=== PATIENT | female | born 1980 | race Caucasian/White ===

== ENCOUNTER 2021-08-19 10:22 | Emergency (ER) | payer SELFPAY ==
[2021-08-19 11:45] LABS: SARS-COV-2 RT PCR NEGATIVE (NEGATIVE)
--- NOTE | 2021-08-19 12:11 | EDPHYS ---
Physician Documentation [facility] Name: Christa Mcdowell Age: 40 yrs Sex: Female : 1980 Arrival Date: 08/19/2021 Time: 10:23 Bed Waiting Private MD: ED Physician Allen Corona HPI: 08/19 12:10 This 40 yrs old Female presents to ER via Ambulatory with complaints of bodyaches, kb chills. 12:10 The patient or guardian reports cough, that is intermittent, described as mild, flu kb symptoms, myalgias. Onset: The symptoms/episode began/occurred this morning. Severity of symptoms: At their worst the symptoms were moderate, in the emergency department the symptoms are unchanged. Modifying factors: The symptoms are alleviated by nothing, the symptoms are aggravated by nothing. Associated signs and symptoms: The patient has no apparent associated signs or symptoms. The patient has not experienced similar symptoms in the past. The patient has not recently seen a physician. 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 - Social history:: Smoking status: Patient denies any tobacco usage or history of. ROS: 12:09 Cardiovascular: Negative for chest pain, palpitations, and edema. kb 12:09 Constitutional: Positive for body aches, chills, malaise. 12:09 Respiratory: Positive for cough. 12:09 All other systems are negative. Exam: 12:09 Constitutional: This is a well developed, well nourished patient who is awake, alert, kb and in no acute distress. Head/Face: Normocephalic, atraumatic. ENT: Moist Mucous membranes Cardiovascular: Regular rate and rhythm with a normal S1 and S2. No gallops, murmurs, or rubs. No pulse deficits. Respiratory: Respirations even and unlabored. No increased work of breathing. Talking in full sentences Skin: Warm, dry with normal turgor. Normal color. MS/ Extremity: Pulses equal, no cyanosis. Neurovascular intact. Full, normal range of motion. Neuro: Awake and alert, GCS 15, oriented to person, place, time, and situation. Moves all extremities. Normal gait. Psych: Awake, alert, with orientation to person, place and time. Behavior, mood, and affect are within normal limits. Vital Signs: 10:28 BP 126 / 73; Pulse 95; Resp 18; Temp 98.6; Pulse Ox 100% ; Weight 63.5 kg; Height 5 ft. ww 8 in. (172.72 cm); Pain 0/10; 10:28 Body Mass Index 21.29 (63.50 kg, 172.72 cm) ww MDM: 10:27 Patient medically screened. kb 12:09 Data reviewed: vital signs, nurses notes. Data interpreted: Pulse oximetry: on room air kb is 100 %. Interpretation: normal. Counseling: I had a detailed discussion with the patient and/or guardian regarding: the historical points, exam findings, and any diagnostic results supporting the discharge/admit diagnosis, lab results, the need for outpatient follow up, a family practitioner, to return to the emergency department if symptoms worsen or persist or if there are any questions or concerns that arise at home. 08/19 10:27 Order name: COVID-19/FLU A+B (Document "Date of Onset" if Symptomatic); Complete Time: kb 12:08 Administered Medications: No medications were administered Disposition: 16:37 Co-signature as Attending Physician, Allen Corona MD I agree with the assessment and kdr plan of care. Disposition Summary: 08/19/21 12:11 Discharge Ordered Location: Home kb Condition: Stable kb Diagnosis - Influenza due to identified novel influenza A virus kb Followup: kb - With: Emergency Department - When: As needed - Reason: Worsening of condition Followup: kb - With: Private Physician - When: 2 - 3 days - Reason: Recheck today's complaints, Continuance of care, Re-evaluation by your physician Discharge Instructions: - Discharge Summary Sheet kb - Influenza, Adult, [id number] kb Forms: - Medication Reconciliation Form kb - Thank You Letter kb - Antibiotic Education kb - Prescription Opioid Use kb Prescriptions: - Tamiflu 75 mg Oral Capsule - take 1 tablet by ORAL route every 12 hours for 5 days; 10 tablet; Refills: 0, kb Product Selection Permitted Signatures: Dispatcher [employer] EDDixie Molina FNP-C FNP-Ckb Rittger, Allen, MD MD kdr Ivanna Mccord, RN RN ww
--- NOTE | 2021-08-19 12:11 | ER ---
Nurse's Notes [facility] Name: Christa Mcdowell Age: 40 yrs Sex: Female : 1980 Arrival Date: 08/19/2021 Time: 10:23 Bed Waiting [facility] MD: Diagnosis: Influenza due to identified novel influenza A virus Presentation: 08/19 10:28 Chief complaint: Patient states: Body aches, drainage and cough that started this ww morning. Coronavirus screen: Vaccine status: Patient reports receiving the 2nd dose of the covid vaccine. Client denies travel out of the [place] in the last 14 days. Ebola Screen: Patient denies travel to an Ebola-affected area in the 21 days before illness onset. Initial Sepsis Screen: Does the patient meet any 2 criteria? No. Patient's initial sepsis screen is negative. Does the patient have a suspected source of infection? No. Patient's initial sepsis screen is negative. Risk Assessment: Do you want to hurt yourself or someone else? Patient reports no desire to harm self or others. Onset of symptoms was August 19, 2021. 10:28 Method Of Arrival: Ambulatory ww 10:28 Acuity: [place] 4 ww Triage Assessment: 10:29 General: Appears in no apparent distress. Behavior is calm, cooperative. Pain: ww Complains of pain in generalized body aches. EENT: Reports nasal congestion. Neuro: Level of Consciousness is awake, alert, obeys commands, Oriented to person, place, time, situation, Moves all extremities. Gait is steady, Speech is normal. Cardiovascular: Patient's skin is warm and dry. Respiratory: Airway is patent Respiratory effort is even, unlabored, Respiratory pattern is regular, symmetrical. GI: No signs and/or symptoms were reported involving the gastrointestinal system. : No signs and/or symptoms were reported regarding the genitourinary system. Derm: No signs and/or symptoms reported regarding the dermatologic system. Skin is intact, is healthy with good turgor. 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 - Social history:: Smoking status: Patient denies any tobacco usage or history of. Screenin:30 Abuse screen: Denies threats or abuse. Denies injuries from another. Nutritional ww screening: No deficits noted. Tuberculosis screening: No symptoms or risk factors identified. Fall Risk None identified. Vital Signs: 10:28 BP 126 / 73; Pulse 95; Resp 18; Temp 98.6; Pulse Ox 100% ; Weight 63.5 kg; Height 5 ft. ww 8 in. (172.72 cm); Pain 0/10; 10:28 Body Mass Index 21.29 (63.50 kg, 172.72 cm) ww ED Course: 10:23 Patient arrived in ED. as 10:26 Dixie Bishop [facility]C [facility]. kb 10:26 Allen Corona MD is Attending Physician. kb 10:29 Triage completed. ww 10:29 Arm band placed on left wrist. ww 10:30 COVID swab sent to lab. Flu and/or RSV swab sent to lab. ww 12:14 No provider procedures requiring assistance completed. Patient did not have IV access ww during this emergency room visit. Administered Medications: No medications were administered Outcome: 12:11 Discharge ordered by MD. kb 12:14 Discharged to home ambulatory. ww 12:14 Condition: stable 12:14 Discharge instructions given to patient, Instructed on discharge instructions, follow up and referral plans. medication usage, safety practices, Demonstrated understanding of instructions, follow-up care, medications, Prescriptions given X 1. 12:15 Patient left the ED. ww Signatures: Dixie Bishop FNP-C FNP-Ckb Martinez, Amelia as Ivanna Mccord, RN RN ww
[2021-08-19 12:26] VITALS: BP 126/73; TEMP 98.6; O2SAT 100
== END 2021-08-19 12:15 | disposition home or self-care (01) ==
LOC: ER 10:22
DX: J09.X9 Influenza due to identified novel influenza A virus with other manifestations (principal); Z20.822 Contact with and (suspected) exposure to COVID-19; E03.9 Hypothyroidism, unspecified
CPT/HCPCS: 0240U; 99283